=== PATIENT | male | born 1960 | race Caucasian/White ===

== ENCOUNTER → 2024-05-10 08:10 | Outpatient (REF) | payer OTHER, SELFPAY | LOC: RAD 08:10 | PROVIDERS: ATTENDING PHYSICIAN Internal Medicine Gastroenterology; FAMILY PHYSICIAN Internal Medicine Geriatric Medicine | DX: K83.8 Other specified diseases of biliary tract (principal) | CPT/HCPCS: 74160; Q9967 ==